=== PATIENT | female | born 2000 | race Two or more races ===

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

== ENCOUNTER 2022-06-16 16:28 | Inpatient (IN) | payer OTHER ==
--- NOTE | 2022-06-16 19:00 | NUR ---
both nares swabbed for covid-19 without complication.
--- NOTE | 2022-06-17 06:54 | PR ---
[facility] [address] [facility] [place], [place] [address] Signed Progress Notes IP Datetime Report Generated by CPN: 06/17/2022 06:54 PROGRESS NOTES: [id number] Impression: Reassuring Heart Rate Procedures: Sterile Vag Exam Plan: Continue Present Management VITAL SIGNS: [id number] Vital Signs: Reviewed; Within Normal Limits EXAM: [id number] Dilatation: 3.5 Effacement: 90 Station: -2 Contractions: rare MEMBRANES: [id number] ROM Note: amnisure collected Comments: No real progress so far though she is starting to feel some contractions. Will continue to increase pit. FETUS A: [id number] FHR Baseline: 145 Variability: Minimal - >Undetectable to <=5bpm Accelerations: 15X15 FHR Category: Category II Presentation: Vertex Comments on Fetus A: sketchy strip - will closely observe but suspect OK FETUS B: [id number] Signing Physician: Emelina Prado MD Copies: ~ *Electronically Signed* 06/17/22 0654 EMELINA PRADO MD PATIENT NAME: IVETTE WOMACK DANILO PROGRESS NOTE DATE OF : 00 PHYSICIAN: EMELINA PRADO MD RPT #: [id number] REPORT IS CONFIDENTIAL AND NOT TO BE RELEASED WITHOUT AUTHORIZATION
== END 2022-06-19 12:55 | disposition home or self-care (01) | DRG 807 ==
LOC: FBCO 16:28 → FBC 18:05
PROVIDERS: ADMIT Obstetrics & Gynecology; ATTEND Obstetrics & Gynecology
PROC: 10E0XZZ Delivery of Products of Conception, External Approach (ICD-10-PCS; principal; 2022-06-17)
PROC: 0KQM0ZZ Repair Perineum Muscle, Open Approach (ICD-10-PCS; 2022-06-17)
PROC: 10907ZC Drainage of Amniotic Fluid, Therapeutic from Products of Conception, Via Natural or Artificial Opening (ICD-10-PCS; 2022-06-17)
PROC: 3E0R3BZ Introduction of Anesthetic Agent into Spinal Canal, Percutaneous Approach (ICD-10-PCS; 2022-06-17)
PROC: 00HU33Z Insertion of Infusion Device into Spinal Canal, Percutaneous Approach (ICD-10-PCS; 2022-06-17)
DX: O42.02 Full-term premature rupture of membranes, onset of labor within 24 hours of rupture (principal); Z37.0 Single live birth; O70.1 Second degree perineal laceration during delivery; O76 Abnormality in fetal heart rate and rhythm complicating labor and delivery; Z20.822 Contact with and (suspected) exposure to COVID-19; Z3A.40 40 weeks gestation of pregnancy; Z79.899 Other long term (current) drug therapy
CPT/HCPCS: 36415; 84112; 85027; 86850; 86900; 86901; 87502; A9270; C9803; J2001; J2405; J2590; J2795; J7121; U0003

== ENCOUNTER 2025-09-21 09:23 | Emergency (ER) | payer OTHER ==
[~2025-09-21] VITALS: Ht 182.9 cm; Wt 84.0 kg
[2025-09-21] MEDS ORDERED: PRENATABS FA T1 EACH (09:52)
[2025-09-21 11:08] LABS: BASOPHILS 0.7 % (0.1-1.2); EOSINOPHILS 1.3 % (0.7-5.8); LYMPHOCYTES 20.6 % (19.3-51.7); MCH 30.5 PG (25.6-32.2); MCHC 34.1 g/dL (32.2-35.5); MCV 89.5 fL (79.4-94.8); MONOCYTES 5.7 % (4.7-12.5); NEUTROPHILS 71.3 % (34.0-71.1); RBC 4.56 M/uL (3.93-5.22)
[2025-09-21 11:27] LABS: ABO O; RH POSITIVE
[2025-09-21 11:37] LABS: ALT (SGPT) 29.0 U/L (14-59); AST (SGOT) 14.0 U/L (15-37); GLOMERULAR FILTRATION RATE,EST 108.0 mL/min (>60); PROTEIN, TOTAL 7.7 g/dL (6.4-8.2); UREA NITROGEN 12.0 mg/dL (7-18)
[2025-09-21 12:05] LABS: BLOOD/HGB, URINE LARGE (Negative); KETONE, URINE NEGATIVE (Negative); LEUK ESTERASE, URINE NEGATIVE (negative); NITRITE, URINE NEGATIVE (negative)
[2025-09-21 12:14] LABS: BACTERIA, URINE NONE SEEN /hpf (negative); CASTS, URINE NONE SEEN \\lpf; CRYSTALS, URINE NONE SEEN (0-1+); EPITHELIAL CELLS, URINE SQUAMOUS 2+ /lpf (0-1+); REFLEX CULTURE, URINE No (No)
[2025-09-21 13:45] VITALS: BP 114/78
== END 2025-09-21 13:47 | disposition home or self-care (01) ==
LOC: ED 09:23
PROVIDERS: Emergency Medicine
DX: O20.9 Hemorrhage in early pregnancy, unspecified (principal); Z3A.01 Less than 8 weeks gestation of pregnancy
CPT/HCPCS: 36415; 76801; 76817; 80053; 81001; 84702; 85025; 86900; 86901; 99284-25